=== PATIENT | male | born 1975 | race Two or more races ===

== ENCOUNTER 2018-02-09 12:59 | Inpatient (IN) | payer OTHER ==
[2018-02-09 17:24] VITALS: BMI 31.6
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
[2018-02-09] MEDS ORDERED: IBUPROFEN 400 MG TABLET (FP) PO PRN (18:02)
[2018-02-09] MEDS ORDERED: hydrOXYzine PAMOATE 50 MG CAPSULE (FP) PO PRN (18:02)
[2018-02-09] MEDS ORDERED: guaiFENesin/D-METHORPHAN HB 10 ML UNIT-DOSE CUPS PO PRN (18:02)
[2018-02-09] MEDS ORDERED: MENTHOL/PHENOL 1 EACH UD MM PRN (18:02)
[2018-02-09] MEDS ORDERED: MAG HYDROX/AL HYDROX/SIMETH 30 ML UNIT-DOSE CUP PO PRN (18:02)
[2018-02-09] MEDS ORDERED: MAGNESIUM CITRATE 300 ML BOTTLE PO PRN (18:02)
[2018-02-09] MEDS ORDERED: P-EPHED 60MG/TRIPROLIDI 2.5MG TABLET PO PRN (18:02)
[2018-02-09] MEDS ORDERED: LOPERAMIDE HCL 2 MG CAPSULE PO PRN (18:02)
[2018-02-09] MEDS ORDERED: ACETAMINOPHEN 325 MG TABLET (FP) PO PRN (18:02)
[2018-02-09] MEDS ORDERED: MAGNESIUM HYDROX 2400MG/30ML ORAL SUSPENSION 30 ML CUP PO PRN (18:02)
[2018-02-09] MEDS ORDERED: chlordiazePOXIDE HCL 25 MG CAPSULE PO ONE (18:30)
[2018-02-09 21:13] LABS: URINE APPEARANCE CLEAR; URINE BILIRUBIN NEGATIVE (NEGATIVE); URINE BLOOD NEGATIVE (NEGATIVE); URINE COLOR STRAW; URINE GLUCOSE (UA) NEGATIVE (NEGATIVE); URINE KETONE TRACE (NEGATIVE); URINE LEUK ESTERASE NEGATIVE (NEGATIVE); URINE NITRITE NEGATIVE (NEGATIVE); URINE PROTEIN NEGATIVE (NEGATIVE); URINE UROBILINOGEN NEGATIVE mg/dL (0.2-1.0)
[2018-02-09] MEDS: MELATONIN 5 MG TABLETS PO SCH (22:37)
[2018-02-09] MEDS: THIAMINE HCL 100 MG TABLET (FP) PO SCH (22:37)
[2018-02-09] MEDS: chlordiazePOXIDE HCL 25 MG CAPSULE PO SCH (22:37)
[2018-02-09] MEDS: levETIRAcetam 500 MG TABLET (FP) PO SCH (22:37)
[2018-02-09] MEDS: cloNIDine HCL 0.1 MG TABLET PO SCH (22:37)
[2018-02-10] MEDS: chlordiazePOXIDE HCL 25 MG CAPSULE PO SCH ×4 (05:31→22:18)
--- NOTE | 2018-02-10 09:17 | PN ---
S CIWA - CIWA Score Nausea/Vomitin-Mild Nausea/No Vomiting Muscle Tremors: 4-Moderate,w/Arms Extend Anxiety: 4-Mod. Anxious/Guarded Agitation: 4-Moderately Restless Paroxysmal Sweats: 2 Orientation: 1-Uncertain about Date Tacttile Disturbances: 1-Very Mild Itch/Numbness Auditory Disturbances: 0-None Visual Disturbances: 0-None Headache: 1-Very Mild CIWA-Ar Total Score: 18 BHS Progress Note (SOAP) Subjective: sweat tremor mild headache anxiety restlessness unable to remember detail about yesterday oriented to staff and time and space patient is cooperative but anxious Objective: 02/10/18 09:19 Vital Signs Temperature 96.3 F L 02/10/18 06:33 Pulse Rate 86 02/10/18 06:33 Respiratory Rate 20 02/10/18 06:33 Blood Pressure 114/75 02/10/18 06:33 O2 Sat by Pulse Oximetry (%) Laboratory Last Values Urine Color Straw 02/09/18 20:00 Urine Appearance Clear 02/09/18 20:00 Urine pH 6.0 (5.0-8.0) 02/09/18 20:00 Ur Specific [place] 1.004 (1.001-1.035) 02/09/18 20:00 Urine Protein Negative (NEGATIVE) 02/09/18 20:00 Urine Glucose (UA) Negative (NEGATIVE) 02/09/18 20:00 Urine Ketones Trace (NEGATIVE) H 02/09/18 20:00 Urine Blood Negative (NEGATIVE) 02/09/18 20:00 Urine Nitrite Negative (NEGATIVE) 02/09/18 20:00 Urine Bilirubin Negative (NEGATIVE) 02/09/18 20:00 Urine Urobilinogen Negative mg/dL (0.2-1.0) 02/09/18 20:00 Ur Leukocyte Esterase Negative (NEGATIVE) 02/09/18 20:00 lab noted Assessment: 02/10/18 09:20 withdrawal sx Plan: continue detox
--- NOTE | 2018-02-10 10:06 | CONSULT ---
[facility] Psychiatric Consult - Data Date of interview: 02/10/18 Admission source: [facility] Identifying data: This is 42 years old male , , living in halfway, [place], with history of Alcohol and Nicotine dependence, is here for detoxification. Patientreports no history of psychiatric hospitalizations. Substance Abuse History: Smoking history: Current every day smoker. Have you smoked in the past 12 months: Yes. Aproximately how many cigarettes per day: 10. Hx Chewing Tobacco Use: No. Initiated information on smoking cessation: Yes. 'Breaking Loose' booklet given: 02/09/18. - Substance & Tx. History. Hx Alcohol Use: Yes. Hx Substance Use: No. Substance Use Type: Alcohol. Hx Substance Use Treatment: Yes ([facility] 02/13/15 TO 02/17/15). - Substances Abused. Alcohol. Route: Oral. Frequency: Daily. Amount used: fifth of whiskey. Age of first use: 14. Date of Last Use: 02/09/18 Medical History: HTN, Seizure history, History of Tracheostomy 2011. Psychiatric History: Patient reports history of anxiety, deoression, insomnia, reoports taking prior to admission: Ambien 10mg po qhs. Denies suicidal history Physical/Sexual Abuse/Trauma History: Denies Additional Comment: Ambien 10mg po qhs Mental Status Exam - Mental Status Exam Alert and Oriented to: Person Cognitive Function: Fair Patient Appearance: Well Groomed Mood: Anxious Affect: Mood Congruent Patient Behavior: Cooperative Speech Pattern: Appropriate Voice Loudness: Normal Thought Process: Goal Oriented Thought Disorder: Being Controlled Hallucinations: Denies Suicidal Ideation: Denies Homicidal Ideation: Denies Insight/Judgement: Fair Sleep: Difficulty falling asleep Appetite: Fair Muscle strength/Tone: Mild Hypotonicity Gait/Station: Shuffling Additional Comments: Ambien 10mg po qhs Psychiatric Findings - Problem List ([place] 1, 2,3) (1) Alcohol dependence with uncomplicated intoxication Current Visit: Yes Status: Acute (2) Alcohol dependence with uncomplicated withdrawal Current Visit: Yes Status: Acute (3) Alcohol dependence Current Visit: No Status: Acute (4) NAVI (generalized anxiety disorder) Current Visit: No Status: Acute (5) MDD (major depressive disorder) Current Visit: No Status: Suspected (6) Nicotine dependence Current Visit: No Status: Acute (7) Opioid dependence Current Visit: No Status: Acute (8) Seizures Current Visit: No Status: Acute (9) Drug-induced mood disorder Current Visit: No Status: Suspected - Initial Treatment Plan Initial Treatment Plan: Ambien 10mg po qhs
[2018-02-10 10:08] LABS: HEMATOCRIT 36.9 % (35.4-49); HEMOGLOBIN 12.2 GM/dL (11.7-16.9); MCH 30.7 pg (25.7-33.7); MCHC 33.1 g/dl (32.0-35.9); MEAN CELL VOLUME 92.7 fl (80-96); MEAN PLT VOLUME 7.8 fl (7.5-11.1); PLATELET COUNT 198 K/MM3 (134-434); RBC 3.98 M/mm3 (4.00-5.60); RDW 14.9 % (11.9-15.9); WHITE BLOOD COUNT 3.7 K/mm3 (4.0-10.0)
[2018-02-10 10:15] LABS: CHLORIDE 104 mmol/L (98-107); POTASSIUM 3.7 mmol/L (3.5-5.1); SODIUM 143 mmol/L (136-145)
[2018-02-10 10:24] LABS: ALK PHOS 72 U/L (45-117); ANION GAP 10 (8-16); BLOOD UREA NITROGEN 7 mg/dL (7-18); CALCIUM 8.4 mg/dL (8.5-10.1); CO2 29 mmol/L (21-32); CREATININE 0.8 mg/dL (0.7-1.3); GLUCOSE,RANDOM 85 mg/dL (74-106); SGOT/AST 46 U/L (15-37); SGPT/ALT 45 U/L (12-78); TOT PROT 6.4 g/dl (6.4-8.2)
[2018-02-10] MEDS: levETIRAcetam 500 MG TABLET (FP) PO SCH ×2 (10:50→22:18)
[2018-02-10] MEDS: METOPROLOL TARTRATE 25 MG TABLET (FP) PO SCH (10:50)
[2018-02-10] MEDS: PRENATAL VITAMINS W/ FOLIC ACID TABLET (FP) PO SCH (10:50)
[2018-02-10] MEDS: cloNIDine HCL 0.1 MG TABLET PO SCH ×2 (10:50→22:18)
--- NOTE | 2018-02-10 11:15 | PN ---
[facility] CIWA - CIWA Score Nausea/Vomitin-Mild Nausea/No Vomiting Muscle Tremors: 4-Moderate,w/Arms Extend Anxiety: 4-Mod. Anxious/Guarded Agitation: 4-Moderately Restless Paroxysmal Sweats: 1-Minimal Palms Moist Orientation: 0-Oriented Tacttile Disturbances: 0-None Auditory Disturbances: 0-None Visual Disturbances: 0-None Headache: 0-None Present CIWA-Ar Total Score: 14 BHS Progress Note (SOAP) Subjective: sweat tremor anxiety restlessness mild gi distress trouble sleeping Objective: 02/10/18 11:14 Vital Signs Temperature 97.7 F 02/10/18 10:00 Pulse Rate 96 H 02/10/18 10:00 Respiratory Rate 20 02/10/18 10:00 Blood Pressure 132/87 02/10/18 10:00 O2 Sat by Pulse Oximetry (%) Laboratory Last Values WBC 3.7 K/mm3 (4.0-10.0) L D 02/10/18 07:30 RBC 3.98 M/mm3 (4.00-5.60) L 02/10/18 07:30 Hgb 12.2 GM/dL (11.7-16.9) D 02/10/18 07:30 Hct 36.9 % (35.4-49) 02/10/18 07:30 MCV 92.7 fl (80-96) 02/10/18 07:30 MCH 30.7 pg (25.7-33.7) 02/10/18 07:30 MCHC 33.1 g/dl (32.0-35.9) 02/10/18 07:30 RDW 14.9 % (11.9-15.9) 02/10/18 07:30 Plt Count 198 K/MM3 (134-434) D 02/10/18 07:30 MPV 7.8 fl (7.5-11.1) 02/10/18 07:30 Sodium 143 mmol/L (136-145) 02/10/18 07:30 Potassium 3.7 mmol/L (3.5-5.1) 02/10/18 07:30 Chloride 104 mmol/L (98-107) 02/10/18 07:30 Carbon Dioxide 29 mmol/L (21-32) D 02/10/18 07:30 Anion Gap 10 (8-16) 02/10/18 07:30 BUN 7 mg/dL (7-18) 02/10/18 07:30 Creatinine 0.8 mg/dL (0.7-1.3) 02/10/18 07:30 Creat Clearance w eGFR > 60 (>60) 02/10/18 07:30 Random Glucose 85 mg/dL (74-106) 02/10/18 07:30 Calcium 8.4 mg/dL (8.5-10.1) L 02/10/18 07:30 Total Bilirubin 2.0 mg/dL (0.2-1.0) H D 02/10/18 07:30 AST 46 U/L (15-37) H D 02/10/18 07:30 ALT 45 U/L (12-78) D 02/10/18 07:30 Alkaline Phosphatase 72 U/L (45-117) 02/10/18 07:30 Total Protein 6.4 g/dl (6.4-8.2) 02/10/18 07:30 Albumin 3.0 g/dl (3.4-5.0) L 02/10/18 07:30 Urine Color Straw 02/09/18 20:00 Urine Appearance Clear 02/09/18 20:00 Urine pH 6.0 (5.0-8.0) 02/09/18 20:00 Ur Specific [place] 1.004 (1.001-1.035) 02/09/18 20:00 Urine Protein Negative (NEGATIVE) 02/09/18 20:00 Urine Glucose (UA) Negative (NEGATIVE) 02/09/18 20:00 Urine Ketones Trace (NEGATIVE) H 02/09/18 20:00 Urine Blood Negative (NEGATIVE) 02/09/18 20:00 Urine Nitrite Negative (NEGATIVE) 02/09/18 20:00 Urine Bilirubin Negative (NEGATIVE) 02/09/18 20:00 Urine Urobilinogen Negative mg/dL (0.2-1.0) 02/09/18 20:00 Ur Leukocyte Esterase Negative (NEGATIVE) 02/09/18 20:00 lab noted Assessment: 02/10/18 11:15 withdrawal sx Plan: continue detox
--- NOTE | 2018-02-10 14:35 | EKG ---
Test Reason : Blood Pressure : / mmHG Vent. Rate : 081 BPM Atrial Rate : 081 BPM P-R Int : 134 ms QRS Dur : 100 ms QT Int : 418 ms P-R-T Axes : 021 049 043 degrees QTc Int : 485 ms NORMAL SINUS RHYTHM PROLONGED QT ABNORMAL ECG WHEN COMPARED WITH ECG OF 09-FEB-2018 19:27, T WAVE INVERSION NOW EVIDENT IN ANTERIOR LEADS Confirmed by HERMAN HILL MD ([id number]) on 02/10/2018 2:35:29 PM Referred By: Confirmed By:HERMAN HILL MD
[2018-02-10] MEDS ORDERED: ZOLPIDEM TARTRATE 10 MG TABLET (PARK CARE ONLY) PO PRN (22:00)
[2018-02-10] MEDS: MELATONIN 5 MG TABLETS PO SCH (22:18)
[2018-02-10] MEDS: THIAMINE HCL 100 MG TABLET (FP) PO SCH (22:19)
[2018-02-11] MEDS: chlordiazePOXIDE HCL 25 MG CAPSULE PO SCH ×3 (05:42→16:50)
[2018-02-11] MEDS: METOPROLOL TARTRATE 25 MG TABLET (FP) PO SCH (10:06)
[2018-02-11] MEDS: PRENATAL VITAMINS W/ FOLIC ACID TABLET (FP) PO SCH (10:06)
[2018-02-11] MEDS: levETIRAcetam 500 MG TABLET (FP) PO SCH ×2 (10:06→22:06)
[2018-02-11] MEDS: cloNIDine HCL 0.1 MG TABLET PO SCH ×2 (10:06→22:06)
--- NOTE | 2018-02-11 10:53 | PN ---
BHS Progress Note (SOAP) Subjective: interrupted sleep, sweats,shakes,need a/d oint for left facial scrap after sz. , not sleep. Objective: 02/11/18 10:49 Vital Signs Temperature 96 F L 02/11/18 09:39 Pulse Rate 84 02/11/18 09:39 Respiratory Rate 18 02/11/18 09:39 Blood Pressure 133/90 02/11/18 09:39 O2 Sat by Pulse Oximetry (%) Laboratory Tests 02/09/18 02/10/18 02/10/18 20:00 07:30 07:30 WBC 3.7 L D RBC 3.98 L Hgb 12.2 D Hct 36.9 MCV 92.7 MCH 30.7 MCHC 33.1 RDW 14.9 Plt Count 198 D MPV 7.8 Sodium 143 Potassium 3.7 Chloride 104 Carbon Dioxide 29 D Anion Gap 10 BUN 7 Creatinine 0.8 Creat Clearance w eGFR > 60 Random Glucose 85 Calcium 8.4 L Total Bilirubin 2.0 H D AST 46 H D ALT 45 D Alkaline Phosphatase 72 Total Protein 6.4 Albumin 3.0 L Urine Color Straw Urine Appearance Clear Urine pH 6.0 Ur Specific [place] 1.004 Urine Protein Negative Urine Glucose (UA) Negative Urine Ketones Trace H Urine Blood Negative Urine Nitrite Negative Urine Bilirubin Negative Urine Urobilinogen Negative Ur Leukocyte Esterase Negative RPR Titer 02/10/18 07:30 WBC RBC Hgb Hct MCV MCH MCHC RDW Plt Count MPV Sodium Potassium Chloride Carbon Dioxide Anion Gap BUN Creatinine Creat Clearance w eGFR Random Glucose Calcium Total Bilirubin AST ALT Alkaline Phosphatase Total Protein Albumin Urine Color Urine Appearance Urine pH Ur Specific [place] Urine Protein Urine Glucose (UA) Urine Ketones Urine Blood Urine Nitrite Urine Bilirubin Urine Urobilinogen Ur Leukocyte Esterase RPR Titer Nonreactive pt aox3 in nad ambulating left face mild excoriation, Assessment: 02/11/18 10:50 withdrawal sx's left facial excoriation insomnia cont. detox increase fluids a/d oint bid pysch eval for sleep meds
[2018-02-11] MEDS: VITAMINS A AND D TOPICAL OINTMENT 60 GM TUBE TP SCH ×2 (10:54→22:06)
--- NOTE | 2018-02-11 11:14 | PN ---
Psychiatric Progress Note Vital Signs: Vital Signs Period Temp Pulse Resp BP Sys/Cherry Pulse Ox Last 24 Hr 96 F-98.2 F 80-90 18-18 123-145/77-90 Date of Session: 02/11/18 Chief Complaint:: "I can't sleep." HPI: Pt. admitted to for alcohol and nicotine dependence. ROS: Unremarkable Current Medications: Active Medications Generic Name Dose Route Start Last Admin Trade Name Freq PRN Reason Stop Dose Admin Acetaminophen 650 mg 02/09/18 18:02 Tylenol - PO Q4H PRN FEVER Al Hydroxide/Mg Hydroxide 30 ml 02/09/18 18:02 Mylanta Oral Suspension - PO Q6H PRN DYSPEPSIA Chlordiazepoxide HCl 25 mg 02/10/18 23:00 02/11/18 10:06 Librium - PO 02/11/18 17:01 25 mg [id number] TALI Administration Chlordiazepoxide HCl 15 mg 02/11/18 23:00 Librium - PO 02/12/18 17:01 [id number] TALI Chlordiazepoxide HCl 25 mg 02/09/18 18:02 Librium - PO 02/12/18 18:01 Q4H PRN WITHDRAWAL(CONT SUBST) Chlordiazepoxide HCl 10 mg 02/12/18 23:00 Librium - PO 02/13/18 17:01 [id number] TALI Clonidine 0.2 mg 02/09/18 22:00 02/11/18 10:06 Catapres - PO 0.2 mg BID TALI Administration Eucalyptus/Menthol/Phenol/Sorbitol 1 each 02/09/18 18:02 Cepastat Lozenge - MM Q4H PRN SORE THROAT Guaifenesin 10 ml 02/09/18 18:02 Robitussin Dm - PO Q6H PRN COUGH Hydroxyzine Pamoate 50 mg 02/09/18 18:02 Vistaril - PO Q4H PRN AGITATION Ibuprofen 400 mg 02/09/18 18:02 Motrin - PO Q6H PRN PAIN LEVEL 4-6 Levetiracetam 500 mg 02/09/18 22:00 02/11/18 10:06 Keppra - PO 500 mg BID TALI Administration Loperamide HCl 4 mg 02/09/18 18:02 Imodium - PO Q6H PRN DIARRHEA Magnesium Citrate 300 ml 02/09/18 18:02 Citroma - PO Q48H PRN CONSTIPATION Magnesium Hydroxide 30 ml 02/09/18 18:02 Milk Of Magnesia - PO DAILY PRN CONSTIPATION Melatonin 5 mg 02/09/18 22:00 02/10/18 22:18 Melatonin PO 5 mg HS TALI Administration Metoprolol Tartrate 25 mg 02/10/18 10:00 02/11/18 10:06 Lopressor - PO 25 mg DAILY TALI Administration Multivit/Folic Acid/Iron 1 tab 02/10/18 10:00 02/11/18 10:06 Vitamins (Sjr) - PO 1 tab DAILY TALI Administration Pseudoephedrine/Triprolidine 1 combo 02/09/18 18:02 Actifed - PO TID PRN NASAL CONGESTION Thiamine HCl 100 mg 02/09/18 22:00 02/10/18 22:19 Vitamin B1 - PO 100 mg HS TALI Administration Vitamin A/Vitamin D 1 applic 02/11/18 10:00 02/11/18 10:54 Vitamin A & D Top Oint - TP 1 applic BID TALI Administration Zolpidem Tartrate 10 mg 02/10/18 22:00 Ambien - PO 02/13/18 21:59 HS PRN INSOMNIA Medication(s) Change(s): No. Current Side Effect: No Lab tests ordered: No Lab tests reviewed: Yes Provider note:: Plaster Mold Maker met with patient concerning psychiatric reconsultation. Pt. c/o insomnia. Patient made aware that ambien was ordered by Dr. Gauthier on 02/10/18. Pt. did not receive ambien 10mg last night. Pt. encouraged to take the ambien tonight. Nursing staff informed. Pt. educated on the benefits and side effects of ambien. Pt. made aware of the risk of parasomnia when accepting ambien. Will continue to monitor. Total face to face time:: 15 Mental Status Exam - Mental Status Exam Alert and Oriented to: Time, Place, Person Cognitive Function: Good Patient Appearance: Well Groomed Mood: Euthymic Affect: Mood Congruent Patient Behavior: Cooperative Speech Pattern: Appropriate Voice Loudness: Normal Thought Process: Goal Oriented Thought Disorder: Not Present Hallucinations: Denies Suicidal Ideation: Denies Homicidal Ideation: Denies Insight/Judgement: Poor Sleep: Poorly Appetite: Fair Muscle strength/Tone: Normal Gait/Station: Normal Psychiatric Treatment Plan - Problem List (1) Alcohol dependence with uncomplicated withdrawal Current Visit: Yes (2) Alcohol dependence Current Visit: Yes (3) NAVI (generalized anxiety disorder) Current Visit: No (4) Insomnia Current Visit: Yes (5) Drug-induced mood disorder Current Visit: No
[2018-02-11] MEDS: chlordiazePOXIDE HCL 25 MG CAPSULE PO PRN ×2 (12:12→19:02)
[2018-02-11] MEDS: MELATONIN 5 MG TABLETS PO SCH (22:05)
[2018-02-11] MEDS: THIAMINE HCL 100 MG TABLET (FP) PO SCH (22:06)
[2018-02-11] MEDS: chlordiazePOXIDE 5 MG CAPSULE PO SCH (22:06)
[2018-02-12] MEDS: chlordiazePOXIDE 5 MG CAPSULE PO SCH ×2 (05:31→10:18)
[2018-02-12] MEDS: chlordiazePOXIDE HCL 25 MG CAPSULE PO PRN (09:08)
[2018-02-12] MEDS: METOPROLOL TARTRATE 25 MG TABLET (FP) PO SCH (09:11)
[2018-02-12] MEDS: levETIRAcetam 500 MG TABLET (FP) PO SCH (09:11)
[2018-02-12 09:51] VITALS: BP 120/84; PULSE 98; TEMP 97.6
[2018-02-12] MEDS: PRENATAL VITAMINS W/ FOLIC ACID TABLET (FP) PO SCH (10:18)
[2018-02-12] MEDS: cloNIDine HCL 0.1 MG TABLET PO SCH (10:18)
[2018-02-12] MEDS: VITAMINS A AND D TOPICAL OINTMENT 60 GM TUBE TP SCH (10:19)
--- NOTE | 2018-02-12 16:55 | PN ---
BHS Progress Note (SOAP) Subjective: sleep disturbance shakes Objective: 02/12/18 16:54 A & O x 3, noted to be ambulating steadily on unit anxious Vital Signs Temperature 97.6 F 02/12/18 09:51 Pulse Rate 98 H 02/12/18 09:51 Respiratory Rate 16 02/12/18 09:51 Blood Pressure 120/84 02/12/18 09:51 O2 Sat by Pulse Oximetry (%) Assessment: 02/12/18 16:54 withdrawal sx Plan: continue detox
--- NOTE | 2018-02-12 16:57 | DS ---
BHS Detox Discharge Summary Admission Date: 02/09/18 Discharge Date: 02/12/18 - History Additional Comments: After A.M rounds, pt requested to leave. Gave no reasons, just that he wants to leave Insists on leaving despite advice to stay, in no acute distress, denies SI/HI pt will leave AMA Pertinent Past History: seizures HTN insomnia - Physical Exam Results Vital Signs: Vital Signs Temperature 97.6 F 02/12/18 09:51 Pulse Rate 98 H 02/12/18 09:51 Respiratory Rate 16 02/12/18 09:51 Blood Pressure 120/84 02/12/18 09:51 O2 Sat by Pulse Oximetry (%) Pertinent Admission Physical Exam Findings: withdrawal sx - Medication Discharge Medications: Ambulatory Orders Clonidine HCl 0.2 mg PO BID 02/09/18 Zolpidem Tartrate [Ambien] 10 mg PO HS 02/09/18 levETIRAcetam [Keppra -] 500 mg PO BID 02/09/18 Metoprolol Tartrate [Lopressor -] 25 mg PO DAILY #30 tablet 02/11/18 Metoprolol Tartrate [Lopressor -] 25 mg PO DAILY #30 tablet 02/11/18 Vitamin A & D Top Oint - 1 applic TP BID #1 tube 02/11/18 levETIRAcetam [Keppra -] 500 mg PO BID #60 tablet 02/11/18 - AMA Did Patient Leave Against Medical Advice: Yes
[2018-02-12] MEDS ORDERED: chlordiazePOXIDE HCL 10 MG CAPSULE PO SCH (23:00)
--- NOTE | 2018-02-14 09:17 | EKG ---
Test Reason : Blood Pressure : / mmHG Vent. Rate : 113 BPM Atrial Rate : 113 BPM P-R Int : 134 ms QRS Dur : 090 ms QT Int : 350 ms P-R-T Axes : 074 072 062 degrees QTc Int : 480 ms SINUS TACHYCARDIA MINIMAL VOLTAGE CRITERIA FOR LVH, MAY BE NORMAL VARIANT NONSPECIFIC ST ABNORMALITY ABNORMAL ECG NO PREVIOUS ECGS AVAILABLE Confirmed by YOLANDA ROYAL MD ([id number]) on 02/14/2018 9:17:23 AM Referred By: Confirmed By:YOLANDA ROYAL MD
== END 2018-02-12 13:38 | disposition left against medical advice (07) | DRG 770 ==
LOC: YASAS 12:59 → Y6N 17:52
PROVIDERS: ADMIT Internal Medicine; ATTEND Internal Medicine
PROC: HZ2ZZZZ Detoxification Services for Substance Abuse Treatment (ICD-10-PCS; principal; 2018-02-09)
DX: F10.230 Alcohol dependence with withdrawal, uncomplicated (principal); F12.10 Cannabis abuse, uncomplicated; F19.24 Other psychoactive substance dependence with psychoactive substance-induced mood disorder; F41.1 Generalized anxiety disorder; F32.9 Major depressive disorder, single episode, unspecified; G40.509 Epileptic seizures related to external causes, not intractable, without status epilepticus; F51.05 Insomnia due to other mental disorder; I10 Essential (primary) hypertension; Z87.09 Personal history of other diseases of the respiratory system
CPT/HCPCS: 36415; 80053; 81003; 85027; 86593; 93005; 93010; J0735

== ENCOUNTER 2018-03-19 13:01 | Inpatient (IN) | payer OTHER ==
[2018-03-19 13:51] VITALS: BMI 30.7
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
[2018-03-19] MEDS ORDERED: guaiFENesin/D-METHORPHAN HB 10 ML UNIT-DOSE CUPS PO PRN (17:04)
[2018-03-19] MEDS ORDERED: ACETAMINOPHEN 325 MG TABLET (FP) PO PRN (17:04)
[2018-03-19] MEDS ORDERED: MAGNESIUM CITRATE 300 ML BOTTLE PO PRN (17:04)
[2018-03-19] MEDS ORDERED: MAG HYDROX/AL HYDROX/SIMETH 30 ML UNIT-DOSE CUP PO PRN (17:04)
[2018-03-19] MEDS ORDERED: P-EPHED 60MG/TRIPROLIDI 2.5MG TABLET PO PRN (17:04)
[2018-03-19] MEDS ORDERED: chlordiazePOXIDE HCL 25 MG CAPSULE PO ONE (17:04)
[2018-03-19] MEDS ORDERED: MENTHOL/PHENOL 1 EACH UD MM PRN (17:04)
[2018-03-19] MEDS ORDERED: MAGNESIUM HYDROX 2400MG/30ML ORAL SUSPENSION 30 ML CUP PO PRN (17:04)
[2018-03-19] MEDS ORDERED: IBUPROFEN 400 MG TABLET (FP) PO PRN (17:04)
[2018-03-19] MEDS ORDERED: MELATONIN 5 MG TABLETS PO PRN (22:00)
[2018-03-19] MEDS ORDERED: PATIENT'S OWN MEDICATION (NON-FORMULARY) (Clonidine Hcl [Clonidine Hcl] 0.2 MG) PO SCH (22:00)
[2018-03-19] MEDS: THIAMINE HCL 100 MG TABLET (FP) PO SCH (22:29)
[2018-03-19] MEDS: cloNIDine HCL 0.1 MG TABLET PO SCH (22:29)
[2018-03-19] MEDS: levETIRAcetam 500 MG TABLET (FP) PO SCH (22:29)
[2018-03-19] MEDS: chlordiazePOXIDE HCL 25 MG CAPSULE PO SCH (22:30)
[2018-03-20] MEDS: chlordiazePOXIDE HCL 25 MG CAPSULE PO SCH ×4 (05:22→22:20)
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
[2018-03-20 09:04] LABS: URINE APPEARANCE CLEAR; URINE BILIRUBIN NEGATIVE (<2.0 mg/dL); URINE BLOOD NEGATIVE (NEGATIVE); URINE COLOR STRAW; URINE GLUCOSE (UA) NEGATIVE (NEGATIVE); URINE KETONE NEGATIVE (NEGATIVE); URINE LEUK ESTERASE NEGATIVE (NEGATIVE); URINE NITRITE NEGATIVE (NEGATIVE); URINE PROTEIN NEGATIVE (NEGATIVE); URINE UROBILINOGEN NEGATIVE mg/dL (0.2-1.0)
[2018-03-20] MEDS: levETIRAcetam 500 MG TABLET (FP) PO SCH ×2 (10:15→22:20)
[2018-03-20] MEDS: cloNIDine HCL 0.1 MG TABLET PO SCH ×2 (10:16→22:24)
[2018-03-20] MEDS: METOPROLOL TARTRATE 25 MG TABLET (FP) PO SCH (10:16)
[2018-03-20] MEDS: PRENATAL VITAMINS W/ FOLIC ACID TABLET (FP) PO SCH (10:16)
--- NOTE | 2018-03-20 10:47 | EKG ---
Test Reason : Blood Pressure : / mmHG Vent. Rate : 115 BPM Atrial Rate : 115 BPM P-R Int : 132 ms QRS Dur : 100 ms QT Int : 340 ms P-R-T Axes : 046 050 012 degrees QTc Int : 470 ms SINUS TACHYCARDIA POSSIBLE LEFT ATRIAL ENLARGEMENT NONSPECIFIC ST AND T WAVE ABNORMALITY ABNORMAL ECG WHEN COMPARED WITH ECG OF 10-FEB-2018 08:34, T WAVE INVERSION NOW EVIDENT IN INFERIOR LEADS T WAVE INVERSION NO LONGER EVIDENT IN ANTERIOR LEADS Confirmed by SERGIO VILLANUEVA, HERMAN ([id number]) on 03/20/2018 10:46:48 AM Referred By: Confirmed By:HERMAN HILL MD
[2018-03-20 11:16] LABS: HEMATOCRIT 30.3 % (35.4-49); HEMOGLOBIN 10.3 GM/dL (11.7-16.9); MCH 31.5 pg (25.7-33.7); MCHC 34.1 g/dl (32.0-35.9); MEAN CELL VOLUME 92.5 fl (80-96); PLATELET COUNT 227 K/MM3 (134-434); RBC 3.28 M/mm3 (4.00-5.60); RDW 15.9 % (11.9-15.9); WHITE BLOOD COUNT 4.6 K/mm3 (4.0-10.0)
[2018-03-20 11:32] LABS: CHLORIDE 106 mmol/L (98-107); POTASSIUM 3.7 mmol/L (3.5-5.1); SODIUM 140 mmol/L (136-145)
[2018-03-20] MEDS ORDERED: BACITRACIN 0.9 GM PACKET ONE (11:34)
[2018-03-20] MEDS: BACITRACIN 15 GM TUBE TOPICAL OINTMENT TP SCH ×2 (11:38→23:03)
[2018-03-20 11:39] LABS: ALBUMIN 2.8 g/dl (3.4-5.0); ALK PHOS 61 U/L (45-117); ANION GAP 5 (8-16); BILIRUBIN,TOTAL 0.5 mg/dL (0.2-1.0); BLOOD UREA NITROGEN 7 mg/dL (7-18); CO2 29 mmol/L (21-32); CREATININE 0.8 mg/dL (0.7-1.3); GLUCOSE,RANDOM 89 mg/dL (74-106); SGOT/AST 52 U/L (15-37); SGPT/ALT 45 U/L (12-78); TOT PROT 6.1 g/dl (6.4-8.2)
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
[2018-03-20] MEDS: LOPERAMIDE HCL 2 MG CAPSULE PO PRN (21:46)
[2018-03-20] MEDS: THIAMINE HCL 100 MG TABLET (FP) PO SCH (22:20)
[2018-03-20] MEDS: ZOLPIDEM TARTRATE 5 MG TABLET PO PRN (22:28)
[2018-03-20] MEDS: BACITRACIN 0.9 GM PACKET TP SCH (22:28)
[2018-03-21] MEDS: chlordiazePOXIDE HCL 25 MG CAPSULE PO SCH ×3 (05:59→17:48)
[2018-03-21] MEDS: LOPERAMIDE HCL 2 MG CAPSULE PO PRN ×2 (06:01→22:19)
[2018-03-21] MEDS: BACITRACIN 0.9 GM PACKET TP SCH ×2 (10:15→22:17)
[2018-03-21] MEDS: METOPROLOL TARTRATE 25 MG TABLET (FP) PO SCH (10:16)
[2018-03-21] MEDS: levETIRAcetam 500 MG TABLET (FP) PO SCH ×2 (10:16→22:17)
[2018-03-21] MEDS: PRENATAL VITAMINS W/ FOLIC ACID TABLET (FP) PO SCH (10:16)
[2018-03-21] MEDS: cloNIDine HCL 0.1 MG TABLET PO SCH ×2 (10:16→22:18)
--- NOTE | 2018-03-21 11:30 | PN ---
[facility] CIWA - CIWA Score Nausea/Vomitin-No Nausea/No Vomiting Muscle Tremors: 4-Moderate,w/Arms Extend Anxiety: 4-Mod. Anxious/Guarded Agitation: 4-Moderately Restless Paroxysmal Sweats: 1-Minimal Palms Moist Orientation: 0-Oriented Tacttile Disturbances: 0-None Auditory Disturbances: 0-None Visual Disturbances: 0-None Headache: 0-None Present CIWA-Ar Total Score: 13 BHS Progress Note (SOAP) Subjective: ANXIETY,SWEATS,TREMORS,DIARRHEA. Objective: 03/21/18 11:29 Vital Signs Temperature 97.8 F 03/21/18 09:11 Pulse Rate 89 03/21/18 09:11 Respiratory Rate 18 03/21/18 09:11 Blood Pressure 120/73 03/21/18 09:11 O2 Sat by Pulse Oximetry (%) Laboratory Last Values WBC 4.6 K/mm3 (4.0-10.0) 03/20/18 08:00 RBC 3.28 M/mm3 (4.00-5.60) L 03/20/18 08:00 Hgb 10.3 GM/dL (11.7-16.9) L D 03/20/18 08:00 Hct 30.3 % (35.4-49) L D 03/20/18 08:00 MCV 92.5 fl (80-96) 03/20/18 08:00 MCH 31.5 pg (25.7-33.7) 03/20/18 08:00 MCHC 34.1 g/dl (32.0-35.9) 03/20/18 08:00 RDW 15.9 % (11.9-15.9) 03/20/18 08:00 Plt Count 227 K/MM3 (134-434) 03/20/18 08:00 MPV 8.0 fl (7.5-11.1) 03/20/18 08:00 Sodium 140 mmol/L (136-145) 03/20/18 08:00 Potassium 3.7 mmol/L (3.5-5.1) 03/20/18 08:00 Chloride 106 mmol/L (98-107) 03/20/18 08:00 Carbon Dioxide 29 mmol/L (21-32) 03/20/18 08:00 Anion Gap 5 (8-16) L 03/20/18 08:00 BUN 7 mg/dL (7-18) 03/20/18 08:00 Creatinine 0.8 mg/dL (0.7-1.3) 03/20/18 08:00 Creat Clearance w eGFR > 60 (>60) 03/20/18 08:00 Random Glucose 89 mg/dL (74-106) 03/20/18 08:00 Calcium 8.0 mg/dL (8.5-10.1) L 03/20/18 08:00 Total Bilirubin 0.5 mg/dL (0.2-1.0) D 03/20/18 08:00 AST 52 U/L (15-37) H 03/20/18 08:00 ALT 45 U/L (12-78) 03/20/18 08:00 Alkaline Phosphatase 61 U/L (45-117) 03/20/18 08:00 Total Protein 6.1 g/dl (6.4-8.2) L 03/20/18 08:00 Albumin 2.8 g/dl (3.4-5.0) L 03/20/18 08:00 Urine Color Straw 03/20/18 08:51 Urine Appearance Clear 03/20/18 08:51 Urine pH 6.0 (5.0-8.0) 03/20/18 08:51 Ur Specific [place] 1.004 (1.001-1.035) 03/20/18 08:51 Urine Protein Negative (NEGATIVE) 03/20/18 08:51 Urine Glucose (UA) Negative (NEGATIVE) 03/20/18 08:51 Urine Ketones Negative (NEGATIVE) 03/20/18 08:51 Urine Blood Negative (NEGATIVE) 03/20/18 08:51 Urine Nitrite Negative (NEGATIVE) 03/20/18 08:51 Urine Bilirubin Negative (<2.0 mg/dL) 03/20/18 08:51 Urine Urobilinogen Negative mg/dL (0.2-1.0) 03/20/18 08:51 Ur Leukocyte Esterase Negative (NEGATIVE) 03/20/18 08:51 RPR Titer Nonreactive (NONREACTIVE) 03/20/18 08:00 Assessment: 03/21/18 11:29 WITHDRAWAL SX Plan: CONTINUE DETOX IMODIUM PRN. LOMOTIL IF IMODIUM NOT EFFECTIVE.
[2018-03-21] MEDS: chlordiazePOXIDE HCL 25 MG CAPSULE PO PRN (13:19)
[2018-03-21] MEDS: THIAMINE HCL 100 MG TABLET (FP) PO SCH (22:17)
[2018-03-21] MEDS: chlordiazePOXIDE 5 MG CAPSULE PO SCH (22:17)
[2018-03-21] MEDS: ZOLPIDEM TARTRATE 5 MG TABLET PO PRN (22:18)
[2018-03-22] MEDS: chlordiazePOXIDE HCL 25 MG CAPSULE PO PRN (01:38)
[2018-03-22] MEDS: chlordiazePOXIDE 5 MG CAPSULE PO SCH ×3 (06:06→16:50)
[2018-03-22] MEDS: METOPROLOL TARTRATE 25 MG TABLET (FP) PO SCH (10:13)
[2018-03-22] MEDS: BACITRACIN 0.9 GM PACKET TP SCH ×2 (10:13→22:15)
[2018-03-22] MEDS: levETIRAcetam 500 MG TABLET (FP) PO SCH ×2 (10:13→22:15)
[2018-03-22] MEDS: PRENATAL VITAMINS W/ FOLIC ACID TABLET (FP) PO SCH (10:13)
[2018-03-22] MEDS: cloNIDine HCL 0.1 MG TABLET PO SCH ×2 (10:13→22:15)
--- NOTE | 2018-03-22 10:21 | PN ---
S Progress Note (SOAP) Subjective: ANXIETY,FATIGUE,SLIGHT TREMORS,SWEATS. Objective: 03/22/18 10:20 Laboratory Last Values WBC 4.6 K/mm3 (4.0-10.0) 03/20/18 08:00 RBC 3.28 M/mm3 (4.00-5.60) L 03/20/18 08:00 Hgb 10.3 GM/dL (11.7-16.9) L D 03/20/18 08:00 Hct 30.3 % (35.4-49) L D 03/20/18 08:00 MCV 92.5 fl (80-96) 03/20/18 08:00 MCH 31.5 pg (25.7-33.7) 03/20/18 08:00 MCHC 34.1 g/dl (32.0-35.9) 03/20/18 08:00 RDW 15.9 % (11.9-15.9) 03/20/18 08:00 Plt Count 227 K/MM3 (134-434) 03/20/18 08:00 MPV 8.0 fl (7.5-11.1) 03/20/18 08:00 Sodium 140 mmol/L (136-145) 03/20/18 08:00 Potassium 3.7 mmol/L (3.5-5.1) 03/20/18 08:00 Chloride 106 mmol/L (98-107) 03/20/18 08:00 Carbon Dioxide 29 mmol/L (21-32) 03/20/18 08:00 Anion Gap 5 (8-16) L 03/20/18 08:00 BUN 7 mg/dL (7-18) 03/20/18 08:00 Creatinine 0.8 mg/dL (0.7-1.3) 03/20/18 08:00 Creat Clearance w eGFR > 60 (>60) 03/20/18 08:00 Random Glucose 89 mg/dL (74-106) 03/20/18 08:00 Calcium 8.0 mg/dL (8.5-10.1) L 03/20/18 08:00 Total Bilirubin 0.5 mg/dL (0.2-1.0) D 03/20/18 08:00 AST 52 U/L (15-37) H 03/20/18 08:00 ALT 45 U/L (12-78) 03/20/18 08:00 Alkaline Phosphatase 61 U/L (45-117) 03/20/18 08:00 Total Protein 6.1 g/dl (6.4-8.2) L 03/20/18 08:00 Albumin 2.8 g/dl (3.4-5.0) L 03/20/18 08:00 Urine Color Straw 03/20/18 08:51 Urine Appearance Clear 03/20/18 08:51 Urine pH 6.0 (5.0-8.0) 03/20/18 08:51 Ur Specific [place] 1.004 (1.001-1.035) 03/20/18 08:51 Urine Protein Negative (NEGATIVE) 03/20/18 08:51 Urine Glucose (UA) Negative (NEGATIVE) 03/20/18 08:51 Urine Ketones Negative (NEGATIVE) 03/20/18 08:51 Urine Blood Negative (NEGATIVE) 03/20/18 08:51 Urine Nitrite Negative (NEGATIVE) 03/20/18 08:51 Urine Bilirubin Negative (<2.0 mg/dL) 03/20/18 08:51 Urine Urobilinogen Negative mg/dL (0.2-1.0) 03/20/18 08:51 Ur Leukocyte Esterase Negative (NEGATIVE) 03/20/18 08:51 RPR Titer Nonreactive (NONREACTIVE) 03/20/18 08:00 Vital Signs Temperature 95.5 F L 03/22/18 09:14 Pulse Rate 93 H 03/22/18 09:14 Respiratory Rate 18 03/22/18 09:14 Blood Pressure 116/77 03/22/18 09:14 O2 Sat by Pulse Oximetry (%) Assessment: 03/22/18 10:20 WITHDRAWAL SX Plan: CONTINUE DETOX
[2018-03-22] MEDS: hydrOXYzine PAMOATE 50 MG CAPSULE (FP) PO PRN ×2 (15:22→19:39)
--- NOTE | 2018-03-22 16:28 | PN ---
Psychiatric Progress Note Vital Signs: Vital Signs Period Temp Pulse Resp BP Sys/Cherry Pulse Ox Last 24 Hr 95.5 F-98.4 F 80-101 18-18 111-128/77-86 Date of Session: 03/22/18 Chief Complaint:: " I can't sleep at night and I feel anxious.They stop my klonopin." HPI: Patient is about to complete detoxification for alcohol and phencyclidine dependence.Benign hospital course.Mr Vega is complaining of anxiety and inquiring about anxiolytic medications (benzodiazepines). ROS: Unremarkable. Current Medications: Active Medications Generic Name Dose Route Start Last Admin Trade Name Freq PRN Reason Stop Dose Admin Acetaminophen 650 mg 03/19/18 17:04 Tylenol - PO Q4H PRN FEVER Al Hydroxide/Mg Hydroxide 30 ml 03/19/18 17:04 Mylanta Oral Suspension - PO Q6H PRN DYSPEPSIA Bacitracin 0.9 gm 03/20/18 22:30 03/22/18 10:13 Bacitracin - TP 0.9 gm BID TALI Administration Buspirone HCl 15 mg 03/20/18 14:00 03/22/18 14:12 Buspar - PO 15 mg TID TALI Administration Chlordiazepoxide HCl 15 mg 03/21/18 23:00 03/22/18 10:13 Librium - PO 03/22/18 17:01 15 mg [id number] TALI Administration Chlordiazepoxide HCl 25 mg 03/19/18 17:04 03/22/18 01:38 Librium - PO 03/22/18 17:03 25 mg Q4H PRN Administration WITHDRAWAL(CONT SUBST) Chlordiazepoxide HCl 10 mg 03/22/18 23:00 Librium - PO 03/23/18 17:01 [id number] TALI Clonidine 0.2 mg 03/19/18 22:00 03/22/18 10:13 Catapres - PO 0.2 mg BID TALI Administration Eucalyptus/Menthol/Phenol/Sorbitol 1 each 03/19/18 17:04 Cepastat Lozenge - MM Q4H PRN SORE THROAT Guaifenesin 10 ml 03/19/18 17:04 Robitussin Dm - PO Q6H PRN COUGH Hydroxyzine Pamoate 50 mg 03/19/18 17:04 03/22/18 15:22 Vistaril - PO 50 mg Q4H PRN Administration AGITATION Ibuprofen 400 mg 03/19/18 17:04 Motrin - PO Q6H PRN PAIN LEVEL 4-6 Levetiracetam 500 mg 03/19/18 22:00 03/22/18 10:13 Keppra - PO 500 mg BID TALI Administration Loperamide HCl 4 mg 03/19/18 17:04 03/21/18 22:19 Imodium - PO 4 mg Q6H PRN Administration DIARRHEA Magnesium Citrate 300 ml 03/19/18 17:04 Citroma - PO Q48H PRN CONSTIPATION Magnesium Hydroxide 30 ml 03/19/18 17:04 Milk Of Magnesia - PO DAILY PRN CONSTIPATION Melatonin 5 mg 03/19/18 22:00 03/19/18 22:32 Melatonin PO 5 mg HS PRN Administration INSOMNIA Metoprolol Tartrate 25 mg 03/20/18 10:00 03/22/18 10:13 Lopressor - PO 25 mg DAILY TALI Administration Multivit/Folic Acid/Iron 1 tab 03/20/18 10:00 03/22/18 10:13 Vitamins (Sjr) - PO 1 tab DAILY TALI Administration Pseudoephedrine/Triprolidine 1 combo 03/19/18 17:04 Actifed - PO TID PRN NASAL CONGESTION Thiamine HCl 100 mg 03/19/18 22:00 03/21/18 22:17 Vitamin B1 - PO 100 mg HS TALI Administration Trazodone HCl 100 mg 03/22/18 22:00 Desyrel - PO HS TALI Zolpidem Tartrate 10 mg 03/20/18 08:48 03/21/18 22:18 Ambien - PO 10 mg HS PRN Administration INSOMNIA Medication(s) Change(s): Trazodone 100 mg po hs.Ordered at patient's request.Mr Vega indicates that he used to be on 200 mg of trazodone in the past.With favorable response + without adverse effects.Risk of priapism is dicussed with the patient.Agrees with this careplan. 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 " Patient has always been visible on the unit.Observed socializing with peers.Eats well.Complains that ambien is " not working." Sleep hygiene discussed. Patient is receptive to teaching.Mood remains stable.No complaint of suicidal/homicidal ideation,intent or plan.Baseline mental status. Total face to face time:: 25 Mental Status Exam - Mental Status Exam Alert and Oriented to: Time, Place, Person Cognitive Function: Good Patient Appearance: Well Groomed Mood: Apprehensive (mildly anxious), Hopeful Affect: Appropriate, Normal Range Patient Behavior: Appropriate, Cooperative Speech Pattern: Clear Voice Loudness: Normal Thought Process: Intact, Goal Oriented Thought Disorder: Not Present Hallucinations: Denies Suicidal Ideation: Denies Homicidal Ideation: Denies Insight/Judgement: Fair Sleep: Difficulty falling asleep Appetite: Good Muscle strength/Tone: Normal Gait/Station: Normal Psychiatric Treatment Plan - Problem List (1) Alcohol dependence with uncomplicated withdrawal Current Visit: Yes (2) Phencyclidine dependence Current Visit: Yes (3) Nicotine dependence Current Visit: Yes Qualifiers: Nicotine product type: cigarettes Substance use status: in withdrawal Qualified Code(s): F17.213 - Nicotine dependence, cigarettes, with withdrawal (4) NAVI (generalized anxiety disorder) Current Visit: Yes (5) Insomnia Current Visit: Yes (6) Drug-induced mood disorder Current Visit: Yes (7) Substance-induced anxiety disorder Current Visit: Yes
[2018-03-22] MEDS ORDERED: traZODone HCL 100 MG TABLET (FP) PO SCH (22:00)
[2018-03-22] MEDS: THIAMINE HCL 100 MG TABLET (FP) PO SCH (22:15)
[2018-03-22] MEDS: chlordiazePOXIDE HCL 10 MG CAPSULE PO SCH (22:15)
[2018-03-22] MEDS: ZOLPIDEM TARTRATE 5 MG TABLET PO PRN (22:16)
[2018-03-23] MEDS: chlordiazePOXIDE HCL 10 MG CAPSULE PO SCH ×2 (05:17→10:25)
[2018-03-23 09:10] VITALS: BP 107/75; PULSE 97; TEMP 95.6
[2018-03-23] MEDS: BACITRACIN 0.9 GM PACKET TP SCH (10:24)
[2018-03-23] MEDS: levETIRAcetam 500 MG TABLET (FP) PO SCH (10:24)
[2018-03-23] MEDS: PRENATAL VITAMINS W/ FOLIC ACID TABLET (FP) PO SCH (10:25)
[2018-03-23] MEDS: cloNIDine HCL 0.1 MG TABLET PO SCH (10:25)
[2018-03-23] MEDS: METOPROLOL TARTRATE 25 MG TABLET (FP) PO SCH (10:25)
--- NOTE | 2018-03-23 11:55 | PN ---
S Progress Note (SOAP) Subjective: DETOX COMPLETED. ALERT O X 3. REFERRED TO [address] FOR AFTERCARE. Objective: 03/23/18 11:54 Vital Signs Temperature 95.6 F L 03/23/18 09:09 Pulse Rate 97 H 03/23/18 09:09 Respiratory Rate 20 03/23/18 09:09 Blood Pressure 107/75 03/23/18 09:09 O2 Sat by Pulse Oximetry (%) Laboratory Last Values WBC 4.6 K/mm3 (4.0-10.0) 03/20/18 08:00 RBC 3.28 M/mm3 (4.00-5.60) L 03/20/18 08:00 Hgb 10.3 GM/dL (11.7-16.9) L D 03/20/18 08:00 Hct 30.3 % (35.4-49) L D 03/20/18 08:00 MCV 92.5 fl (80-96) 03/20/18 08:00 MCH 31.5 pg (25.7-33.7) 03/20/18 08:00 MCHC 34.1 g/dl (32.0-35.9) 03/20/18 08:00 RDW 15.9 % (11.9-15.9) 03/20/18 08:00 Plt Count 227 K/MM3 (134-434) 03/20/18 08:00 MPV 8.0 fl (7.5-11.1) 03/20/18 08:00 Sodium 140 mmol/L (136-145) 03/20/18 08:00 Potassium 3.7 mmol/L (3.5-5.1) 03/20/18 08:00 Chloride 106 mmol/L (98-107) 03/20/18 08:00 Carbon Dioxide 29 mmol/L (21-32) 03/20/18 08:00 Anion Gap 5 (8-16) L 03/20/18 08:00 BUN 7 mg/dL (7-18) 03/20/18 08:00 Creatinine 0.8 mg/dL (0.7-1.3) 03/20/18 08:00 Creat Clearance w eGFR > 60 (>60) 03/20/18 08:00 Random Glucose 89 mg/dL (74-106) 03/20/18 08:00 Calcium 8.0 mg/dL (8.5-10.1) L 03/20/18 08:00 Total Bilirubin 0.5 mg/dL (0.2-1.0) D 03/20/18 08:00 AST 52 U/L (15-37) H 03/20/18 08:00 ALT 45 U/L (12-78) 03/20/18 08:00 Alkaline Phosphatase 61 U/L (45-117) 03/20/18 08:00 Total Protein 6.1 g/dl (6.4-8.2) L 03/20/18 08:00 Albumin 2.8 g/dl (3.4-5.0) L 03/20/18 08:00 Urine Color Straw 03/20/18 08:51 Urine Appearance Clear 03/20/18 08:51 Urine pH 6.0 (5.0-8.0) 03/20/18 08:51 Ur Specific [place] 1.004 (1.001-1.035) 03/20/18 08:51 Urine Protein Negative (NEGATIVE) 03/20/18 08:51 Urine Glucose (UA) Negative (NEGATIVE) 03/20/18 08:51 Urine Ketones Negative (NEGATIVE) 03/20/18 08:51 Urine Blood Negative (NEGATIVE) 03/20/18 08:51 Urine Nitrite Negative (NEGATIVE) 03/20/18 08:51 Urine Bilirubin Negative (<2.0 mg/dL) 03/20/18 08:51 Urine Urobilinogen Negative mg/dL (0.2-1.0) 03/20/18 08:51 Ur Leukocyte Esterase Negative (NEGATIVE) 03/20/18 08:51 RPR Titer Nonreactive (NONREACTIVE) 03/20/18 08:00 Assessment: 03/23/18 11:54 MEDICALLY STABLE Plan: D/C PT TODAY
--- NOTE | 2018-03-23 11:59 | DS ---
[facility] Detox Discharge Summary Admission Date: 03/19/18 Discharge Date: 03/23/18 - History Present History: Alcohol Dependence Additional Comments: DETOX COMPLETED. ALERT O X 3. NAD. Pertinent Past History: PLEASE SEE DX BELOW - Physical Exam Results Vital Signs: Vital Signs Temperature 95.6 F L 03/23/18 09:09 Pulse Rate 97 H 03/23/18 09:09 Respiratory Rate 20 03/23/18 09:09 Blood Pressure 107/75 03/23/18 09:09 O2 Sat by Pulse Oximetry (%) Pertinent Admission Physical Exam Findings: WITHDRAWAL SX Laboratory Tests 03/20/18 03/20/18 03/20/18 08:00 08:00 08:00 WBC 4.6 RBC 3.28 L Hgb 10.3 L D Hct 30.3 L D MCV 92.5 MCH 31.5 MCHC 34.1 RDW 15.9 Plt Count 227 MPV 8.0 Sodium 140 Potassium 3.7 Chloride 106 Carbon Dioxide 29 Anion Gap 5 L BUN 7 Creatinine 0.8 Creat Clearance w eGFR > 60 Random Glucose 89 Calcium 8.0 L Total Bilirubin 0.5 D AST 52 H ALT 45 Alkaline Phosphatase 61 Total Protein 6.1 L Albumin 2.8 L Urine Color Urine Appearance Urine pH Ur Specific [place] Urine Protein Urine Glucose (UA) Urine Ketones Urine Blood Urine Nitrite Urine Bilirubin Urine Urobilinogen Ur Leukocyte Esterase RPR Titer Nonreactive 03/20/18 08:51 WBC RBC Hgb Hct MCV MCH MCHC RDW Plt Count MPV Sodium Potassium Chloride Carbon Dioxide Anion Gap BUN Creatinine Creat Clearance w eGFR Random Glucose Calcium Total Bilirubin AST ALT Alkaline Phosphatase Total Protein Albumin Urine Color Straw Urine Appearance Clear Urine pH 6.0 Ur Specific [place] 1.004 Urine Protein Negative Urine Glucose (UA) Negative Urine Ketones Negative Urine Blood Negative Urine Nitrite Negative Urine Bilirubin Negative Urine Urobilinogen Negative Ur Leukocyte Esterase Negative RPR Titer - Treatment Hospital Course: Detox Protocol Followed, Detoxed Safely, Responded well, Discharged Condition Good, Rehab Referral Accepted Patient has Accepted a Rehab Referral to: [facility] - Medication Discharge Medications: Ambulatory Orders Clonidine HCl 0.2 mg PO BID 02/09/18 Zolpidem Tartrate [Ambien] 10 mg PO HS 02/09/18 Metoprolol Tartrate [Lopressor -] 25 mg PO DAILY #30 tablet 02/11/18 levETIRAcetam [Keppra -] 500 mg PO BID #60 tablet 02/11/18 Sertraline HCl [Zoloft] 100 mg PO DAILY 03/19/18 Buspirone HCl [Buspar -] 15 mg PO TID #90 tablet 03/20/18 - Diagnosis (1) Alcohol dependence with uncomplicated withdrawal Current Visit: Yes Status: Acute (2) Essential (primary) hypertension Current Visit: Yes Status: Chronic (3) Nicotine dependence Current Visit: Yes Status: Acute Qualifiers: Nicotine product type: cigarettes Substance use status: in withdrawal Qualified Code(s): F17.213 - Nicotine dependence, cigarettes, with withdrawal (4) Chronic pain Current Visit: Yes Status: Chronic (5) Seizure disorder Current Visit: Yes Status: Suspected - AMA Did Patient Leave Against Medical Advice: No
== END 2018-03-23 12:10 | disposition other institution (70) | DRG 775 ==
LOC: YASAS 13:01 → Y3N 17:08
PROVIDERS: ADMIT Internal Medicine; ATTEND Internal Medicine
PROC: HZ2ZZZZ Detoxification Services for Substance Abuse Treatment (ICD-10-PCS; principal; 2018-03-19)
DX: F10.230 Alcohol dependence with withdrawal, uncomplicated (principal); F16.20 Hallucinogen dependence, uncomplicated; F17.213 Nicotine dependence, cigarettes, with withdrawal; F41.1 Generalized anxiety disorder; F19.24 Other psychoactive substance dependence with psychoactive substance-induced mood disorder; F19.280 Other psychoactive substance dependence with psychoactive substance-induced anxiety disorder; F51.05 Insomnia due to other mental disorder; I10 Essential (primary) hypertension; G89.29 Other chronic pain; G47.00 Insomnia, unspecified; G40.909 Epilepsy, unspecified, not intractable, without status epilepticus; S01.81XD Laceration without foreign body of other part of head, subsequent encounter; X58.XXXD Exposure to other specified factors, subsequent encounter; Z91.010 Allergy to peanuts; Z91.018 Allergy to other foods; Z87.11 Personal history of peptic ulcer disease
CPT/HCPCS: 36415; 80053; 81003; 85027; 86593; 93005; 93010; J0735

== ENCOUNTER 2018-03-23 12:12 | Inpatient (IN) | payer OTHER ==
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
[2018-03-23] MEDS ORDERED: ACETAMINOPHEN 325 MG TABLET (FP) PO PRN (15:26)
[2018-03-23] MEDS ORDERED: LOPERAMIDE HCL 2 MG CAPSULE PO PRN (15:26)
[2018-03-23] MEDS ORDERED: MENTHOL/PHENOL 1 EACH UD MM PRN (15:26)
[2018-03-23] MEDS ORDERED: P-EPHED 60MG/TRIPROLIDI 2.5MG TABLET PO PRN (15:26)
[2018-03-23] MEDS ORDERED: MAGNESIUM HYDROX 2400MG/30ML ORAL SUSPENSION 30 ML CUP PO PRN (15:26)
[2018-03-23] MEDS ORDERED: MAG HYDROX/AL HYDROX/SIMETH 30 ML UNIT-DOSE CUP PO PRN (15:26)
[2018-03-23] MEDS ORDERED: MAGNESIUM CITRATE 300 ML BOTTLE PO PRN (15:26)
[2018-03-23] MEDS ORDERED: IBUPROFEN 400 MG TABLET (FP) PO PRN (15:26)
[2018-03-23] MEDS ORDERED: guaiFENesin/D-METHORPHAN HB 10 ML UNIT-DOSE CUPS PO PRN (15:26)
[2018-03-23] MEDS: levETIRAcetam 500 MG TABLET (FP) PO SCH (21:12)
[2018-03-23] MEDS: SUVOREXANT 10 MG TABLET PO PRN (21:12)
[2018-03-23] MEDS: cloNIDine HCL 0.1 MG TABLET PO SCH (21:12)
[2018-03-23] MEDS: THIAMINE HCL 100 MG TABLET (FP) PO SCH (21:12)
[2018-03-23] MEDS: traZODone HCL 100 MG TABLET (FP) PO SCH (21:12)
[2018-03-23] MEDS ORDERED: MELATONIN 5 MG TABLETS PO PRN (22:00)
[2018-03-24] MEDS: PRENATAL VITAMINS W/ FOLIC ACID TABLET (FP) PO SCH (09:40)
[2018-03-24] MEDS: cloNIDine HCL 0.1 MG TABLET PO SCH ×2 (09:40→21:06)
[2018-03-24] MEDS: METOPROLOL TARTRATE 25 MG TABLET (FP) PO SCH (09:40)
[2018-03-24] MEDS: levETIRAcetam 500 MG TABLET (FP) PO SCH ×2 (09:40→21:07)
[2018-03-24] MEDS: hydrOXYzine PAMOATE 50 MG CAPSULE (FP) PO PRN (14:17)
--- NOTE | 2018-03-24 15:08 | PN ---
S Progress Note Note: Patient c/o of generalize pain with muscular tightness on back. A/P Aox3, no distress + back and muscle pain Full ROM ambulating in the unit Plan: Flexeril 5mg TID PRN Increase fluids Continue to ambulate Continue to monitor
[2018-03-24] MEDS: NICOTINE 14 MG/24 HOURS TOPICAL PATCH TD SCH (17:12)
[2018-03-24] MEDS: LIDOCAINE 5% TOPICAL PATCH TP SCH (17:12)
[2018-03-24] MEDS: traZODone HCL 100 MG TABLET (FP) PO SCH (21:06)
[2018-03-24] MEDS: THIAMINE HCL 100 MG TABLET (FP) PO SCH (21:06)
[2018-03-24] MEDS: SUVOREXANT 10 MG TABLET PO PRN (21:07)
[2018-03-24] MEDS: LIDOCAINE PATCH REMOVAL MC SCH (21:09)
[2018-03-25] MEDS: cloNIDine HCL 0.1 MG TABLET PO SCH ×2 (09:42→21:13)
[2018-03-25] MEDS: PRENATAL VITAMINS W/ FOLIC ACID TABLET (FP) PO SCH (09:43)
[2018-03-25] MEDS: levETIRAcetam 500 MG TABLET (FP) PO SCH ×2 (09:43→21:13)
[2018-03-25] MEDS: METOPROLOL TARTRATE 25 MG TABLET (FP) PO SCH (09:43)
[2018-03-25] MEDS: NICOTINE 14 MG/24 HOURS TOPICAL PATCH TD SCH (09:43)
[2018-03-25] MEDS: LIDOCAINE 5% TOPICAL PATCH TP SCH (09:43)
[2018-03-25] MEDS: traZODone HCL 50 MG TABLET (FP) PO SCH (21:12)
[2018-03-25] MEDS: CYCLOBENZAPRINE HCL 5 MG TABLET PO PRN (21:13)
[2018-03-25] MEDS: SUVOREXANT 10 MG TABLET PO PRN (21:13)
[2018-03-25] MEDS: THIAMINE HCL 100 MG TABLET (FP) PO SCH (21:15)
[2018-03-25] MEDS: LIDOCAINE PATCH REMOVAL MC SCH (21:15)
[2018-03-26] MEDS: METOPROLOL TARTRATE 25 MG TABLET (FP) PO SCH (09:40)
[2018-03-26] MEDS: cloNIDine HCL 0.1 MG TABLET PO SCH ×2 (09:40→21:19)
[2018-03-26] MEDS: levETIRAcetam 500 MG TABLET (FP) PO SCH ×2 (09:40→21:20)
[2018-03-26] MEDS: PRENATAL VITAMINS W/ FOLIC ACID TABLET (FP) PO SCH (09:40)
[2018-03-26] MEDS: LIDOCAINE 5% TOPICAL PATCH TP SCH (09:40)
[2018-03-26] MEDS: NICOTINE 14 MG/24 HOURS TOPICAL PATCH TD SCH (09:43)
--- NOTE | 2018-03-26 17:06 | PN ---
[facility] Progress Note Note: Psychiatry Attending's production cook note : Renewal of belsomra : Requested by nurse. Chart reviewed.Dose verified. No adverse effects reported. Belsomra 10 mg po hs prn.Ordered.
[2018-03-26] MEDS: THIAMINE HCL 100 MG TABLET (FP) PO SCH (21:19)
[2018-03-26] MEDS: CYCLOBENZAPRINE HCL 5 MG TABLET PO PRN (21:19)
[2018-03-26] MEDS: traZODone HCL 50 MG TABLET (FP) PO SCH (21:19)
[2018-03-26] MEDS: SUVOREXANT 10 MG TABLET PO PRN (21:20)
[2018-03-26] MEDS: LIDOCAINE PATCH REMOVAL MC SCH (21:20)
[2018-03-27] MEDS: PRENATAL VITAMINS W/ FOLIC ACID TABLET (FP) PO SCH (09:56)
[2018-03-27] MEDS: cloNIDine HCL 0.1 MG TABLET PO SCH ×2 (09:56→21:03)
[2018-03-27] MEDS: levETIRAcetam 500 MG TABLET (FP) PO SCH ×2 (09:56→21:03)
[2018-03-27] MEDS: NICOTINE 14 MG/24 HOURS TOPICAL PATCH TD SCH (09:57)
[2018-03-27] MEDS: METOPROLOL TARTRATE 25 MG TABLET (FP) PO SCH (09:57)
[2018-03-27] MEDS: LIDOCAINE 5% TOPICAL PATCH TP SCH (09:57)
[2018-03-27] MEDS: traZODone HCL 50 MG TABLET (FP) PO SCH (21:03)
[2018-03-27] MEDS: THIAMINE HCL 100 MG TABLET (FP) PO SCH (21:03)
[2018-03-27] MEDS: hydrOXYzine PAMOATE 50 MG CAPSULE (FP) PO PRN (21:04)
[2018-03-27] MEDS: SUVOREXANT 10 MG TABLET PO PRN (21:05)
[2018-03-27] MEDS: LIDOCAINE PATCH REMOVAL MC SCH (21:21)
[2018-03-28] MEDS: cloNIDine HCL 0.1 MG TABLET PO SCH ×2 (09:29→21:53)
[2018-03-28] MEDS: levETIRAcetam 500 MG TABLET (FP) PO SCH ×2 (09:29→21:54)
[2018-03-28] MEDS: PRENATAL VITAMINS W/ FOLIC ACID TABLET (FP) PO SCH (09:29)
[2018-03-28] MEDS: METOPROLOL TARTRATE 25 MG TABLET (FP) PO SCH (09:29)
[2018-03-28] MEDS: LIDOCAINE 5% TOPICAL PATCH TP SCH (09:29)
[2018-03-28] MEDS: NICOTINE 14 MG/24 HOURS TOPICAL PATCH TD SCH (09:31)
[2018-03-28] MEDS: NICOTINE POLACRILEX 2 MG GUM BUC PRN ×2 (09:32→13:22)
[2018-03-28] MEDS: CYCLOBENZAPRINE HCL 5 MG TABLET PO PRN (21:53)
[2018-03-28] MEDS: THIAMINE HCL 100 MG TABLET (FP) PO SCH (21:53)
[2018-03-28] MEDS: traZODone HCL 50 MG TABLET (FP) PO SCH (21:53)
[2018-03-28] MEDS: SUVOREXANT 10 MG TABLET PO PRN (21:53)
[2018-03-28] MEDS: hydrOXYzine PAMOATE 50 MG CAPSULE (FP) PO PRN (21:55)
[2018-03-28] MEDS: LIDOCAINE PATCH REMOVAL MC SCH (21:56)
[2018-03-29] MEDS: levETIRAcetam 500 MG TABLET (FP) PO SCH ×2 (09:39→21:08)
[2018-03-29] MEDS: PRENATAL VITAMINS W/ FOLIC ACID TABLET (FP) PO SCH (09:39)
[2018-03-29] MEDS: LIDOCAINE 5% TOPICAL PATCH TP SCH (09:39)
[2018-03-29] MEDS: METOPROLOL TARTRATE 25 MG TABLET (FP) PO SCH (09:39)
[2018-03-29] MEDS: NICOTINE 14 MG/24 HOURS TOPICAL PATCH TD SCH (09:39)
[2018-03-29] MEDS: cloNIDine HCL 0.1 MG TABLET PO SCH ×2 (09:39→21:07)
[2018-03-29] MEDS: NICOTINE POLACRILEX 2 MG GUM BUC PRN ×2 (10:25→13:52)
[2018-03-29] MEDS: hydrOXYzine PAMOATE 50 MG CAPSULE (FP) PO PRN ×2 (14:49→21:10)
[2018-03-29] MEDS: THIAMINE HCL 100 MG TABLET (FP) PO SCH (21:07)
[2018-03-29] MEDS: traZODone HCL 50 MG TABLET (FP) PO SCH (21:07)
[2018-03-29] MEDS: LIDOCAINE PATCH REMOVAL MC SCH (21:08)
[2018-03-29] MEDS: SUVOREXANT 10 MG TABLET PO PRN (21:10)
[2018-03-30] MEDS: hydrOXYzine PAMOATE 50 MG CAPSULE (FP) PO PRN ×4 (06:23→21:08)
[2018-03-30] MEDS: METOPROLOL TARTRATE 25 MG TABLET (FP) PO SCH (09:46)
[2018-03-30] MEDS: cloNIDine HCL 0.1 MG TABLET PO SCH ×2 (09:46→21:05)
[2018-03-30] MEDS: levETIRAcetam 500 MG TABLET (FP) PO SCH ×2 (09:47→21:05)
[2018-03-30] MEDS: PRENATAL VITAMINS W/ FOLIC ACID TABLET (FP) PO SCH (09:47)
[2018-03-30] MEDS: NICOTINE 14 MG/24 HOURS TOPICAL PATCH TD SCH (09:47)
[2018-03-30] MEDS: LIDOCAINE 5% TOPICAL PATCH TP SCH (09:48)
[2018-03-30] MEDS: traZODone HCL 50 MG TABLET (FP) PO SCH (21:05)
[2018-03-30] MEDS: THIAMINE HCL 100 MG TABLET (FP) PO SCH (21:05)
[2018-03-30] MEDS: LIDOCAINE PATCH REMOVAL MC SCH (21:06)
[2018-03-30] MEDS: SUVOREXANT 10 MG TABLET PO PRN (21:08)
[2018-03-31] MEDS: hydrOXYzine PAMOATE 50 MG CAPSULE (FP) PO PRN ×3 (06:43→21:13)
[2018-03-31] MEDS: NICOTINE 14 MG/24 HOURS TOPICAL PATCH TD SCH (09:34)
[2018-03-31] MEDS: PRENATAL VITAMINS W/ FOLIC ACID TABLET (FP) PO SCH (09:34)
[2018-03-31] MEDS: cloNIDine HCL 0.1 MG TABLET PO SCH ×2 (09:35→21:11)
[2018-03-31] MEDS: METOPROLOL TARTRATE 25 MG TABLET (FP) PO SCH (09:35)
[2018-03-31] MEDS: LIDOCAINE 5% TOPICAL PATCH TP SCH (09:35)
[2018-03-31] MEDS: levETIRAcetam 500 MG TABLET (FP) PO SCH ×2 (09:35→21:11)
[2018-03-31] MEDS: traZODone HCL 50 MG TABLET (FP) PO SCH (21:11)
[2018-03-31] MEDS: LIDOCAINE PATCH REMOVAL MC SCH (21:11)
[2018-03-31] MEDS: THIAMINE HCL 100 MG TABLET (FP) PO SCH (21:12)
[2018-03-31] MEDS: SUVOREXANT 10 MG TABLET PO PRN (21:13)
[2018-04-01] MEDS: hydrOXYzine PAMOATE 50 MG CAPSULE (FP) PO PRN ×3 (06:15→21:09)
[2018-04-01] MEDS: cloNIDine HCL 0.1 MG TABLET PO SCH ×2 (09:42→21:07)
[2018-04-01] MEDS: levETIRAcetam 500 MG TABLET (FP) PO SCH ×2 (09:42→21:07)
[2018-04-01] MEDS: METOPROLOL TARTRATE 25 MG TABLET (FP) PO SCH (09:43)
[2018-04-01] MEDS: LIDOCAINE 5% TOPICAL PATCH TP SCH (09:43)
[2018-04-01] MEDS: PRENATAL VITAMINS W/ FOLIC ACID TABLET (FP) PO SCH (09:43)
[2018-04-01] MEDS: NICOTINE 14 MG/24 HOURS TOPICAL PATCH TD SCH (09:43)
--- NOTE | 2018-04-01 13:34 | PN ---
Psychiatric Progress Note Vital Signs: Vital Signs Period Temp Pulse Resp BP Sys/Cherry Pulse Ox Last 24 Hr 98.3 F 81-101 - 106-126/71-76 Date of Session: 04/01/18 Chief Complaint:: Insomnia HPI: Patient addressing Alcohol, Opioid and Phencyclidine Dependence comorbid with Nicotine Dependence, Substance-Induced Anxiety Disorder and Substance- Induced Sleep Disorder ROS: HTN, Seizure Current Medications: Active Medications Generic Name Dose Route Start Last Admin Trade Name Freq PRN Reason Stop Dose Admin Acetaminophen 650 mg 03/23/18 15:26 Tylenol - PO Q4H PRN FEVER Al Hydroxide/Mg Hydroxide 30 ml 03/23/18 15:26 Mylanta Oral Suspension - PO Q6H PRN DYSPEPSIA Buspirone HCl 15 mg 03/23/18 14:00 04/01/18 06:15 Buspar - PO 15 mg TID TALI Administration Clonidine 0.2 mg 03/23/18 22:00 04/01/18 09:42 Catapres - PO 0.2 mg BID TALI Administration Cyclobenzaprine HCl 5 mg 03/24/18 15:04 03/28/18 21:53 Cyclobenzaprine Hcl PO 5 mg TID PRN Administration BACK PAIN Eucalyptus/Menthol/Phenol/Sorbitol 1 each 03/23/18 15:26 Cepastat Lozenge - MM Q4H PRN SORE THROAT Guaifenesin 10 ml 03/23/18 15:26 Robitussin Dm - PO Q6H PRN COUGH Hydroxyzine Pamoate 50 mg 03/23/18 15:26 04/01/18 06:15 Vistaril - PO 50 mg Q4H PRN Administration AGITATION Levetiracetam 500 mg 03/23/18 22:00 04/01/18 09:42 Keppra - PO 500 mg BID TALI Administration Lidocaine 1 patch 03/24/18 15:30 04/01/18 09:43 Lidoderm Patch - TP 1 patch DAILY TALI Administration Loperamide HCl 4 mg 03/23/18 15:26 Imodium - PO Q6H PRN DIARRHEA Magnesium Citrate 300 ml 03/23/18 15:26 Citroma - PO Q48H PRN CONSTIPATION Magnesium Hydroxide 30 ml 03/23/18 15:26 Milk Of Magnesia - PO DAILY PRN CONSTIPATION Metoprolol Tartrate 25 mg 03/24/18 10:00 04/01/18 09:43 Lopressor - PO 25 mg DAILY TALI Administration Miscellaneous 1 each 03/24/18 22:00 03/31/18 21:11 Lidoderm Patch Removal MC Not Given DAILY@2200 TALI Nicotine 14 mg 03/24/18 15:30 04/01/18 09:43 Nicoderm Patch - TD 14 mg DAILY TALI Administration Nicotine Polacrilex 2 mg 03/24/18 14:41 03/29/18 13:52 Nicorette Gum - BUC 2 mg Q2H PRN Administration NICOTINE REPLACEMENT RX Multivit/Folic Acid/Iron 1 tab 03/24/18 10:00 04/01/18 09:43 Vitamins (Sjr) - PO 1 tab DAILY TALI Administration Pseudoephedrine/Triprolidine 1 combo 03/23/18 15:26 Actifed - PO TID PRN NASAL CONGESTION Suvorexant 10 mg 03/29/18 22:00 03/31/18 21:13 Belsomra PO 10 mg HS PRN Administration INSOMNIA Suvorexant 10 mg 04/01/18 22:00 Belsomra PO HS PRN INSOMNIA Suvorexant 15 mg 04/01/18 22:00 Belsomra PO HS PRN INSOMNIA Thiamine HCl 100 mg 03/23/18 22:00 03/31/18 21:12 Vitamin B1 - PO 100 mg HS TALI Administration Trazodone HCl 200 mg 04/01/18 22:00 Desyrel - PO HS TALI Current Side Effect: No Lab tests ordered: Yes Lab tests reviewed: Yes Provider note:: Reports experiencing difficulty to sleep despite taking Trazadone 150 mg, Belsomra and Vistaril 50 mg at bedtime. Requests to be ordered Ambien. Told by underwriter mortgage loan that Ambien is not allowed for use in rehab in this facility. Discussed instead increasing dosage of both Trazadone and Belsomra. He agreed with plan Total face to face time:: 15 Mental Status Exam - Mental Status Exam Alert and Oriented to: Time, Place, Person Cognitive Function: Fair Patient Appearance: Well Groomed Mood: Anxious Affect: Appropriate Patient Behavior: Cooperative Speech Pattern: Clear Voice Loudness: Normal Thought Process: Intact, Goal Oriented Thought Disorder: Not Present Hallucinations: Denies Suicidal Ideation: Denies Homicidal Ideation: Denies Insight/Judgement: Fair Sleep: Poorly Appetite: Good Muscle strength/Tone: Normal Gait/Station: Normal Psychiatric Treatment Plan - Problem List (1) Substance-induced anxiety disorder Current Visit: No (2) NAVI (generalized anxiety disorder) Current Visit: No (3) Substance-induced sleep disorder Current Visit: No (4) Alcohol dependence Current Visit: No (5) Opioid dependence Current Visit: No (6) Phencyclidine dependence Current Visit: No (7) Nicotine dependence Current Visit: No Qualifiers: Nicotine product type: cigarettes Substance use status: in withdrawal Qualified Code(s): F17.213 - Nicotine dependence, cigarettes, with withdrawal (8) Seizures Current Visit: No Qualifiers: Convulsion type: unspecified Qualified Code(s): R56.9 - Unspecified convulsions (9) Essential (primary) hypertension Current Visit: No Initial treatment plan: 1) Discontinue Trazadone and Belsomra as currently ordered. 2) Start Trazadone 200 mg po HS and Belsomra 15 mg po HS prn for insomnia. 3) Monitor progress
--- NOTE | 2018-04-01 15:18 | PN ---
[facility] Progress Note Note: Patient presents with urinary frequency and nocturia. Denies burning upon urination and fever. Vital Signs Temperature 98.3 F 04/01/18 07:16 Pulse Rate 101 H 04/01/18 09:30 Respiratory Rate 18 04/01/18 07:16 Blood Pressure 106/71 04/01/18 09:30 O2 Sat by Pulse Oximetry (%) Obj: General: Pt is awake and oriented x 3. In no acute distress. Skin: Warm and dry GI: soft, BS+, NT : no pelvic tenderness, no CVAT A/P: Urinary frequency Will start Flomax 0.4mg hs continue to monitor clinically
[2018-04-01] MEDS: SUVOREXANT 10 MG TABLET PO PRN (21:07)
[2018-04-01] MEDS: THIAMINE HCL 100 MG TABLET (FP) PO SCH (21:07)
[2018-04-01] MEDS: LIDOCAINE PATCH REMOVAL MC SCH (21:08)
[2018-04-01] MEDS: traZODone HCL 100 MG TABLET (FP) PO SCH (21:08)
[2018-04-01] MEDS ORDERED: SUVOREXANT 10 MG TABLET PO PRN (22:00)
[2018-04-02] MEDS: hydrOXYzine PAMOATE 50 MG CAPSULE (FP) PO PRN ×4 (06:04→21:59)
[2018-04-02] MEDS: TAMSULOSIN HCL 0.4 MG CAP.ER.24H (FP) PO SCH (07:29)
[2018-04-02] MEDS: NICOTINE 14 MG/24 HOURS TOPICAL PATCH TD SCH (09:59)
[2018-04-02] MEDS: PRENATAL VITAMINS W/ FOLIC ACID TABLET (FP) PO SCH (09:59)
[2018-04-02] MEDS: levETIRAcetam 500 MG TABLET (FP) PO SCH ×2 (09:59→21:58)
[2018-04-02] MEDS: cloNIDine HCL 0.1 MG TABLET PO SCH ×2 (09:59→21:57)
[2018-04-02] MEDS: METOPROLOL TARTRATE 25 MG TABLET (FP) PO SCH (09:59)
[2018-04-02] MEDS: LIDOCAINE 5% TOPICAL PATCH TP SCH (10:00)
[2018-04-02] MEDS: THIAMINE HCL 100 MG TABLET (FP) PO SCH (21:57)
[2018-04-02] MEDS: LIDOCAINE PATCH REMOVAL MC SCH (21:58)
[2018-04-02] MEDS: traZODone HCL 100 MG TABLET (FP) PO SCH (21:58)
[2018-04-02] MEDS: SUVOREXANT 15 MG TABLET PO PRN (22:00)
[2018-04-03] MEDS: hydrOXYzine PAMOATE 50 MG CAPSULE (FP) PO PRN ×3 (06:26→21:03)
[2018-04-03] MEDS: TAMSULOSIN HCL 0.4 MG CAP.ER.24H (FP) PO SCH (07:34)
[2018-04-03] MEDS: levETIRAcetam 500 MG TABLET (FP) PO SCH ×2 (09:45→21:04)
[2018-04-03] MEDS: METOPROLOL TARTRATE 25 MG TABLET (FP) PO SCH (09:45)
[2018-04-03] MEDS: LIDOCAINE 5% TOPICAL PATCH TP SCH (09:46)
[2018-04-03] MEDS: cloNIDine HCL 0.1 MG TABLET PO SCH ×2 (09:46→21:04)
[2018-04-03] MEDS: PRENATAL VITAMINS W/ FOLIC ACID TABLET (FP) PO SCH (09:46)
[2018-04-03] MEDS: NICOTINE 14 MG/24 HOURS TOPICAL PATCH TD SCH (09:46)
[2018-04-03] MEDS: SUVOREXANT 15 MG TABLET PO PRN (21:03)
[2018-04-03] MEDS: THIAMINE HCL 100 MG TABLET (FP) PO SCH (21:03)
[2018-04-03] MEDS: traZODone HCL 100 MG TABLET (FP) PO SCH (21:04)
[2018-04-03] MEDS: LIDOCAINE PATCH REMOVAL MC SCH (21:04)
[2018-04-04] MEDS: hydrOXYzine PAMOATE 50 MG CAPSULE (FP) PO PRN ×3 (06:24→13:48)
[2018-04-04] MEDS: TAMSULOSIN HCL 0.4 MG CAP.ER.24H (FP) PO SCH (08:02)
[2018-04-04] MEDS: NICOTINE 14 MG/24 HOURS TOPICAL PATCH TD SCH (09:38)
[2018-04-04] MEDS: PRENATAL VITAMINS W/ FOLIC ACID TABLET (FP) PO SCH (09:38)
[2018-04-04] MEDS: LIDOCAINE 5% TOPICAL PATCH TP SCH (09:38)
[2018-04-04] MEDS: levETIRAcetam 500 MG TABLET (FP) PO SCH ×2 (09:38→21:01)
[2018-04-04] MEDS: METOPROLOL TARTRATE 25 MG TABLET (FP) PO SCH (09:38)
[2018-04-04] MEDS: cloNIDine HCL 0.1 MG TABLET PO SCH ×2 (09:38→21:02)
[2018-04-04] MEDS ORDERED: PT OWN MED DRAWER 7, Y5N ONE (10:55)
[2018-04-04] MEDS: traZODone HCL 100 MG TABLET (FP) PO SCH (21:00)
[2018-04-04] MEDS: SUVOREXANT 15 MG TABLET PO PRN (21:01)
[2018-04-04] MEDS: LIDOCAINE PATCH REMOVAL MC SCH (21:03)
[2018-04-04] MEDS: THIAMINE HCL 100 MG TABLET (FP) PO SCH (21:03)
[2018-04-04] MEDS ORDERED: SUVOREXANT 10 MG TABLET PO PRN (22:00)
[2018-04-05] MEDS: hydrOXYzine PAMOATE 50 MG CAPSULE (FP) PO PRN ×3 (05:55→21:32)
[2018-04-05] MEDS: TAMSULOSIN HCL 0.4 MG CAP.ER.24H (FP) PO SCH (08:06)
[2018-04-05] MEDS: LIDOCAINE 5% TOPICAL PATCH TP SCH (09:42)
[2018-04-05] MEDS: PRENATAL VITAMINS W/ FOLIC ACID TABLET (FP) PO SCH (09:43)
[2018-04-05] MEDS: levETIRAcetam 500 MG TABLET (FP) PO SCH ×2 (09:43→21:32)
[2018-04-05] MEDS: cloNIDine HCL 0.1 MG TABLET PO SCH ×2 (09:43→21:32)
[2018-04-05] MEDS: NICOTINE 14 MG/24 HOURS TOPICAL PATCH TD SCH (09:43)
[2018-04-05] MEDS: METOPROLOL TARTRATE 25 MG TABLET (FP) PO SCH (09:43)
[2018-04-05] MEDS: SUVOREXANT 15 MG TABLET PO PRN (21:31)
[2018-04-05] MEDS: traZODone HCL 100 MG TABLET (FP) PO SCH (21:32)
[2018-04-05] MEDS: LIDOCAINE PATCH REMOVAL MC SCH (21:32)
[2018-04-05] MEDS: THIAMINE HCL 100 MG TABLET (FP) PO SCH (21:32)
[2018-04-06] MEDS: hydrOXYzine PAMOATE 50 MG CAPSULE (FP) PO PRN ×3 (06:00→21:08)
[2018-04-06] MEDS: TAMSULOSIN HCL 0.4 MG CAP.ER.24H (FP) PO SCH (08:49)
[2018-04-06] MEDS: PRENATAL VITAMINS W/ FOLIC ACID TABLET (FP) PO SCH (09:49)
[2018-04-06] MEDS: LIDOCAINE 5% TOPICAL PATCH TP SCH (09:49)
[2018-04-06] MEDS: cloNIDine HCL 0.1 MG TABLET PO SCH ×2 (09:49→21:09)
[2018-04-06] MEDS: levETIRAcetam 500 MG TABLET (FP) PO SCH ×2 (09:49→21:08)
[2018-04-06] MEDS: NICOTINE 14 MG/24 HOURS TOPICAL PATCH TD SCH (09:49)
[2018-04-06] MEDS: METOPROLOL TARTRATE 25 MG TABLET (FP) PO SCH (10:26)
[2018-04-06] MEDS ORDERED: PT OWN MED DRAWER 7, Y5N ONE (13:50)
[2018-04-06] MEDS: THIAMINE HCL 100 MG TABLET (FP) PO SCH (21:08)
[2018-04-06] MEDS: SUVOREXANT 15 MG TABLET PO PRN (21:09)
[2018-04-06] MEDS: LIDOCAINE PATCH REMOVAL MC SCH (21:10)
[2018-04-06] MEDS: traZODone HCL 100 MG TABLET (FP) PO SCH (21:10)
[2018-04-07] MEDS: hydrOXYzine PAMOATE 50 MG CAPSULE (FP) PO PRN ×4 (06:01→21:06)
[2018-04-07] MEDS: TAMSULOSIN HCL 0.4 MG CAP.ER.24H (FP) PO SCH (07:36)
[2018-04-07] MEDS: PRENATAL VITAMINS W/ FOLIC ACID TABLET (FP) PO SCH (09:31)
[2018-04-07] MEDS: METOPROLOL TARTRATE 25 MG TABLET (FP) PO SCH (09:31)
[2018-04-07] MEDS: levETIRAcetam 500 MG TABLET (FP) PO SCH ×2 (09:31→21:04)
[2018-04-07] MEDS: cloNIDine HCL 0.1 MG TABLET PO SCH ×2 (09:31→21:04)
[2018-04-07] MEDS: LIDOCAINE 5% TOPICAL PATCH TP SCH (09:32)
[2018-04-07] MEDS: NICOTINE 14 MG/24 HOURS TOPICAL PATCH TD SCH (09:32)
[2018-04-07] MEDS: THIAMINE HCL 100 MG TABLET (FP) PO SCH (21:04)
[2018-04-07] MEDS: LIDOCAINE PATCH REMOVAL MC SCH (21:04)
[2018-04-07] MEDS: traZODone HCL 100 MG TABLET (FP) PO SCH (21:04)
[2018-04-07] MEDS: SUVOREXANT 15 MG TABLET PO PRN (21:06)
[2018-04-08] MEDS: hydrOXYzine PAMOATE 50 MG CAPSULE (FP) PO PRN ×2 (06:00→14:56)
[2018-04-08] MEDS: TAMSULOSIN HCL 0.4 MG CAP.ER.24H (FP) PO SCH (08:00)
[2018-04-08] MEDS: cloNIDine HCL 0.1 MG TABLET PO SCH ×2 (09:32→21:24)
[2018-04-08] MEDS: levETIRAcetam 500 MG TABLET (FP) PO SCH ×2 (09:33→21:25)
[2018-04-08] MEDS: METOPROLOL TARTRATE 25 MG TABLET (FP) PO SCH (09:33)
[2018-04-08] MEDS: LIDOCAINE 5% TOPICAL PATCH TP SCH (09:33)
[2018-04-08] MEDS: PRENATAL VITAMINS W/ FOLIC ACID TABLET (FP) PO SCH (09:33)
[2018-04-08] MEDS: NICOTINE 14 MG/24 HOURS TOPICAL PATCH TD SCH (09:34)
[2018-04-08] MEDS: THIAMINE HCL 100 MG TABLET (FP) PO SCH (21:25)
[2018-04-08] MEDS: LIDOCAINE PATCH REMOVAL MC SCH (21:25)
[2018-04-08] MEDS: traZODone HCL 100 MG TABLET (FP) PO SCH (21:25)
[2018-04-08] MEDS ORDERED: SUVOREXANT 15 MG TABLET PO PRN (22:00)
[2018-04-09] MEDS: hydrOXYzine PAMOATE 50 MG CAPSULE (FP) PO PRN ×3 (06:20→21:11)
[2018-04-09] MEDS: TAMSULOSIN HCL 0.4 MG CAP.ER.24H (FP) PO SCH (07:50)
[2018-04-09] MEDS: LIDOCAINE 5% TOPICAL PATCH TP SCH (09:27)
[2018-04-09] MEDS: levETIRAcetam 500 MG TABLET (FP) PO SCH ×2 (09:28→21:06)
[2018-04-09] MEDS: cloNIDine HCL 0.1 MG TABLET PO SCH ×2 (09:28→21:06)
[2018-04-09] MEDS: METOPROLOL TARTRATE 25 MG TABLET (FP) PO SCH (09:28)
[2018-04-09] MEDS: NICOTINE 14 MG/24 HOURS TOPICAL PATCH TD SCH (09:28)
[2018-04-09] MEDS: PRENATAL VITAMINS W/ FOLIC ACID TABLET (FP) PO SCH (09:28)
[2018-04-09] MEDS: traZODone HCL 100 MG TABLET (FP) PO SCH (21:08)
[2018-04-09] MEDS: THIAMINE HCL 100 MG TABLET (FP) PO SCH (21:12)
[2018-04-10] MEDS: LIDOCAINE PATCH REMOVAL MC SCH ×2 (00:18→23:02)
[2018-04-10] MEDS: hydrOXYzine PAMOATE 50 MG CAPSULE (FP) PO PRN ×3 (06:34→21:15)
[2018-04-10] MEDS: TAMSULOSIN HCL 0.4 MG CAP.ER.24H (FP) PO SCH (07:37)
[2018-04-10] MEDS: cloNIDine HCL 0.1 MG TABLET PO SCH ×2 (09:33→21:14)
[2018-04-10] MEDS: PRENATAL VITAMINS W/ FOLIC ACID TABLET (FP) PO SCH (09:33)
[2018-04-10] MEDS: NICOTINE 14 MG/24 HOURS TOPICAL PATCH TD SCH (09:33)
[2018-04-10] MEDS: METOPROLOL TARTRATE 25 MG TABLET (FP) PO SCH (09:33)
[2018-04-10] MEDS: LIDOCAINE 5% TOPICAL PATCH TP SCH (09:33)
[2018-04-10] MEDS: levETIRAcetam 500 MG TABLET (FP) PO SCH ×2 (09:33→21:14)
--- NOTE | 2018-04-10 13:09 | PN ---
Psychiatric Progress Note Vital Signs: Vital Signs Period Temp Pulse Resp BP Sys/Cherry Pulse Ox Last 24 Hr 98.1 F 84-94 - 101-116/57-71 Date of Session: 04/10/18 Chief Complaint:: Discharge Note HPI: Patient addressing Alcohol, Opioid and Phencyclidine Dependence comorbid with Nicotine Dependence, NAVI, Substance-Induced Anxiety Disorder and Substance- Induced Sleep Disorder Current Medications: Active Medications Generic Name Dose Route Start Last Admin Trade Name Freq PRN Reason Stop Dose Admin Acetaminophen 650 mg 03/23/18 15:26 Tylenol - PO Q4H PRN FEVER Al Hydroxide/Mg Hydroxide 30 ml 03/23/18 15:26 Mylanta Oral Suspension - PO Q6H PRN DYSPEPSIA Buspirone HCl 15 mg 03/23/18 14:00 04/10/18 06:34 Buspar - PO 15 mg TID TALI Administration Clonidine 0.2 mg 03/23/18 22:00 04/10/18 09:33 Catapres - PO 0.2 mg BID TALI Administration Cyclobenzaprine HCl 5 mg 03/24/18 15:04 03/28/18 21:53 Cyclobenzaprine Hcl PO 5 mg TID PRN Administration BACK PAIN Eucalyptus/Menthol/Phenol/Sorbitol 1 each 03/23/18 15:26 Cepastat Lozenge - MM Q4H PRN SORE THROAT Guaifenesin 10 ml 03/23/18 15:26 Robitussin Dm - PO Q6H PRN COUGH Hydroxyzine Pamoate 50 mg 03/23/18 15:26 04/10/18 06:34 Vistaril - PO 50 mg Q4H PRN Administration AGITATION Levetiracetam 500 mg 03/23/18 22:00 04/10/18 09:33 Keppra - PO 500 mg BID TALI Administration Lidocaine 1 patch 03/24/18 15:30 04/10/18 09:33 Lidoderm Patch - TP 1 patch DAILY TALI Administration Loperamide HCl 4 mg 03/23/18 15:26 Imodium - PO Q6H PRN DIARRHEA Magnesium Citrate 300 ml 03/23/18 15:26 Citroma - PO Q48H PRN CONSTIPATION Magnesium Hydroxide 30 ml 03/23/18 15:26 Milk Of Magnesia - PO DAILY PRN CONSTIPATION Metoprolol Tartrate 25 mg 03/24/18 10:00 04/10/18 09:33 Lopressor - PO 25 mg DAILY TALI Administration Miscellaneous 1 each 03/24/18 22:00 04/10/18 00:18 Lidoderm Patch Removal MC 1 each DAILY@2200 ATLI Administration Nicotine 14 mg 03/24/18 15:30 04/10/18 09:33 Nicoderm Patch - TD Not Given DAILY TALI Nicotine Polacrilex 2 mg 03/24/18 14:41 03/29/18 13:52 Nicorette Gum - BUC 2 mg Q2H PRN Administration NICOTINE REPLACEMENT RX Multivit/Folic Acid/Iron 1 tab 03/24/18 10:00 04/10/18 09:33 Vitamins (Sjr) - PO 1 tab DAILY TALI Administration Pseudoephedrine/Triprolidine 1 combo 03/23/18 15:26 Actifed - PO TID PRN NASAL CONGESTION Suvorexant 15 mg 04/08/18 22:00 04/08/18 23:36 Belsomra PO 04/11/18 21:59 15 mg HS PRN Administration INSOMNIA Tamsulosin HCl 0.4 mg 04/02/18 08:30 04/10/18 07:37 Flomax - PO 0.4 mg DAILY@0830 TALI Administration Thiamine HCl 100 mg 03/23/18 22:00 04/09/18 21:12 Vitamin B1 - PO 100 mg HS TALI Administration Trazodone HCl 200 mg 04/01/18 22:00 04/09/18 21:08 Desyrel - PO 200 mg HS TALI Administration Current Side Effect: No Lab tests ordered: Yes Lab tests reviewed: Yes Provider note:: Patient will complete this program on 04/11/18. He has met his treatment goals and will continue to address his issues in [facility] residential treatment [facility]). Told blog writer that seeing much older people than he in this program fuels his motivation to maintain abstinence since he would not want seeing himself in program like this at that age. He responded well to Buspar 15 mg po TID and Trazadone 200 mg po HS. Scripts for 30 days supply of these medications will be electronically transmitted to [facility] at [address] [place] [address]. He is stable for discharge on 04/11/18 Total face to face time:: 35 Mental Status Exam - Mental Status Exam Alert and Oriented to: Time, Place, Person Cognitive Function: Fair Patient Appearance: Well Groomed Mood: Hopeful, Euthymic Affect: Appropriate Patient Behavior: Cooperative Speech Pattern: Clear Voice Loudness: Normal Thought Process: Intact Thought Disorder: Not Present Hallucinations: Denies Suicidal Ideation: Denies Homicidal Ideation: Denies Insight/Judgement: Fair Sleep: Fair Appetite: Good Muscle strength/Tone: Normal Gait/Station: Normal Psychiatric Treatment Plan - Problem List (1) Substance-induced anxiety disorder Current Visit: No (2) NAVI (generalized anxiety disorder) Current Visit: No (3) Substance-induced sleep disorder Current Visit: No (4) Alcohol dependence Current Visit: No (5) Opioid dependence Current Visit: No (6) Phencyclidine dependence Current Visit: No (7) Nicotine dependence Current Visit: No Qualifiers: Nicotine product type: cigarettes Substance use status: in withdrawal Qualified Code(s): F17.213 - Nicotine dependence, cigarettes, with withdrawal (8) Seizures Current Visit: No Qualifiers: Convulsion type: unspecified Qualified Code(s): R56.9 - Unspecified convulsions (9) Essential (primary) hypertension Current Visit: No Initial treatment plan: Patient will be discharged tomorrow and referred to [facility] for exterminator helper termite residential treatment
[2018-04-10] MEDS: THIAMINE HCL 100 MG TABLET (FP) PO SCH (21:14)
[2018-04-10] MEDS: traZODone HCL 100 MG TABLET (FP) PO SCH (21:14)
[2018-04-11] MEDS: hydrOXYzine PAMOATE 50 MG CAPSULE (FP) PO PRN (06:33)
[2018-04-11] MEDS ORDERED: PT OWN MED DRAWER 7, Y5N ONE (06:49)
[2018-04-11 08:29] VITALS: BP 115/79; PULSE 92; TEMP 98
== END 2018-04-11 06:55 | disposition home or self-care (01) | DRG 772 ==
LOC: YASAS 12:12 → Y3W 12:13
PROVIDERS: ADMIT Psychiatry & Neurology Psychiatry; ATTEND Psychiatry & Neurology Psychiatry
PROC: HZ42ZZZ Group Counseling for Substance Abuse Treatment, Cognitive-Behavioral (ICD-10-PCS; principal; 2018-03-23)
DX: F11.20 Opioid dependence, uncomplicated (principal); F10.20 Alcohol dependence, uncomplicated; F16.20 Hallucinogen dependence, uncomplicated; F17.210 Nicotine dependence, cigarettes, uncomplicated; F19.280 Other psychoactive substance dependence with psychoactive substance-induced anxiety disorder; F19.282 Other psychoactive substance dependence with psychoactive substance-induced sleep disorder; F41.1 Generalized anxiety disorder; I10 Essential (primary) hypertension; R56.9 Unspecified convulsions; R35.0 Frequency of micturition
CPT/HCPCS: J0735